=== PATIENT | female | born 1950 | race Caucasian/White ===

== ENCOUNTER 2017-01-13 09:12 | Emergency (ER) | payer OTHER ==
[2017-01-13 09:30] VITALS: BP 127/67
[2017-01-13] MEDS ORDERED: Ibuprofen TAB* 600 MG PO ONE (09:37)
--- NOTE | 2017-01-13 10:02 | RAD ---
HISTORY: Pain of, throbbing pain and swelling COMPARISONS: None VIEWS: 4, Frontal, lateral, and oblique views of the left hand FINDINGS: BONE DENSITY: There is diffuse osteopenia. BONES: There is no displaced fracture. There is remote posttraumatic deformity of the third distal phalanx JOINTS: There is advanced osteoarthritis of the first CMC joint . There is no appreciable erosion or periosteal reaction ALIGNMENT: There is no dislocation. SOFT TISSUES: Unremarkable. OTHER FINDINGS: None. IMPRESSION: 1. OSTEOPENIA. 2. ADVANCED OSTEOARTHRITIS OF THE FIRST CMC JOINT. 3. NO APPRECIABLE EROSION OR PERIOSTEAL REACTION. PLAIN FILM FINDINGS OF OSTEOMYELITIS ARE RELATIVELY LATE FINDINGS. IF THERE IS PERSISTENT CLINICAL CONCERN FOR OSTEOMYELITIS, RECOMMEND CORRELATION WITH FOLLOWUP IMAGING, THREE-PHASE BONE SCANNING, WHITE BLOOD CELL SCAN, AND/OR MRI OF THE AFFECTED REGION.
--- NOTE | 2017-01-13 10:52 | UC ---
Deandra De Los Santos Auryana, scribed for Dewayne Page MD on 01/13/17 at 0941 . Hand/Wrist HPI - HPI Summary HPI Summary: IN ROOM NOTE: 66 year old female presents with left thumb pain starting 2 weeks age worse since 3 days ago- at its worst today. She characterizes the pain as throbbing - 10/10 and now has erythema and edema. Movement aggravates the pain. She is left hand dominant. Patient denies any other complaints. She reports that she attempted to remove part of her nail to help improve pain- no relief. Dr. Raman is her PCP. PMHx is significant for hypothyroidism with thyroidectomy. FHx is significant for heart disease, HLD, and cancer. SHx is not significant for tobacco use - former smoker. NOTE: Vital signs stable. History of hypothyroidism. Visit history non-contributory to present complaint. NURSE NOTE: had a sore thumb for a couple of weeks. states she originally thought she just bumped it but it didn't stop,. she started using a fungicide because the nail was discolored but it is still hurting - History Of Current Complaint Chief Complaint: UCUpperExtremity Stated Complaint: THUMB COMPLAINT Time Seen by Provider: 01/13/17 09:33 Hx Obtained From: Patient Hx Last Menstrual Period: post menopausal ?: No Onset/Duration: Gradual Onset, Lasting Weeks, Still Present, Worse Since - 3 days ago Severity Initially: Moderate Severity Currently: Severe Pain Intensity: 10 Pain Scale Used: 0-10 Numeric Character Of Pain: Throbbing Aggravating Factor(s): Movement Associated Signs And Symptoms: Positive: Swelling, Redness Related History: Dominant Hand Left - Allergies/Home Medications Allergies/Adverse Reactions: Allergies Allergy/AdvReac Type Severity Reaction Status Date / Time Penicillins Allergy Hives Verified 05/25/16 15:32 PMH/Surg Hx/FS Hx/Imm Hx - Additional Past Medical History Additional PMH: Sciatica Graves Disease Endocrine History Of: Reports: Thyroid Disease - thyroidectomy, Hypothyroidism Denies: Diabetes, Hyperthyroidism, Dyslipidemia Cardiovascular History Of: Denies: Cardiac Disorders, Hypertension, Pacemaker/ICD, Myocardial Infarction , Congestive Heart Failure, Atrial Fibrillation, Deep Vein Thrombosis, Bleeding Disorders Respiratory History Of: Reports: COPD Denies: Asthma, Bronchitis, Pneumonia, Pulmonary Embolism GI/ History Of: Denies: Gastroesophageal Reflux, Ulcer, Gastrointestinal Bleed, Gall Bladder Disease, Kidney Stones, Diverticulitis, Renal Disease, Urosepsis Neurological History Of: Denies: TIA, CVA, Dementia, Seizures, Migraine Psychological History Of: Reports: Anxiety, Depression Denies: Bipolar Disorder, Schizophrenia, Post Traumatic Stress Disorder Cancer History Of: Denies: Lung Cancer, Colorectal Cancer, Breast Cancer, Prostate Cancer, Cervical Cancer Other History Of: Negative For: HIV, Hepatitis B - Surgical History Surgical History: Yes Surgery Procedure, Year, and Place: radiated thyroid - Family History Known Family History: Positive: Cardiac Disease - half sister, Other - [place] Negative: Hypertension, Diabetes - Social History Occupation: Retired - reports house work occasionally Lives: Alone Alcohol Use: Occasionally Substance Use Type: None Smoking Status (MU): Former Smoker - Immunization History Most Recent Tetanus Shot: unsure Review of Systems Constitutional: Negative Skin: Negative Eyes: Negative ENT: Negative Respiratory: Negative Cardiovascular: Negative Gastrointestinal: Negative Genitourinary: Negative Motor: Negative Neurovascular: Negative Musculoskeletal: Other: - left thumb pain, swelling and erythema Neurological: Negative Psychological: Negative All Other Systems Reviewed And Are Negative: Yes Physical Exam Triage Information Reviewed: Yes Appearance: Well-Appearing, No Pain Distress, Well-Nourished Vital Signs: Initial Vital Signs Temp 96.2 F 01/13/17 09:20 Pulse 71 01/13/17 09:20 Resp 18 01/13/17 09:20 BP 127/67 01/13/17 09:20 Pulse Ox 97 01/13/17 09:20 Vital Signs Reviewed: Yes Eyes: Positive: Conjunctiva Clear ENT: Positive: Hearing grossly normal, Pharynx normal, TMs normal Neck: Positive: Supple, Nontender, No Lymphadenopathy Respiratory: Positive: Chest non-tender, Lungs clear, Normal breath sounds, No respiratory distress Cardiovascular: Positive: RRR, No Murmur Abdomen Description: Positive: Nontender, No Organomegaly, Soft Bowel Sounds: Positive: Present Musculoskeletal: Positive: Strength Intact, Other: - PRUITT; EXAMINATION OF THE LEFT THUMB SHOWS PARTIAL REMOVAL OF THE UPPER NAIL (PATIENT REPORTS DONE LAST NIGHT) WELL MILD SWELLING AND ERYTHEMA ON THE VOLAR ASPECT. NO ASCENDING LYMPHANGITIS. NO EVIDENCE OF PARONYCHIA. MODERATE TENDERNESS OF THUMB ON DIRECT PALPATION OF THE VOLAR ASPECT. Neurological: Positive: Alert Psychological: Positive: Age Appropriate Behavior Skin: Negative: rashes Diagnostics - Radiology LEFT HAND XR Xray Interpretation: Positive (See Comments) - IMPRESSION: 1. OSTEOPENIA. 2. ADVANCED OSTEOARTHRITIS OF THE FIRST CMC JOINT. 3. NO APPRECIABLE EROSION OR PERIOSTEAL REACTION. PLAIN FILM FINDINGS OF OSTEOMYELITIS ARE RELATIVELY LATE FINDINGS. IF THERE IS PERSISTENT CLINICAL CONCERN FOR OSTEOMYELITIS, RECOMMEND CORRELATION WITH FOLLOWUP IMAGING, THREE-PHASE BONE SCANNING, WHITE BLOOD CELL SCAN, AND/OR MRI OF THE AFFECTED REGION. Radiology Interpretation Completed By: Radiologist Hand/Wrist Course/Dx - Course Course Of Treatment: Discussed with patient diagnosis of cellulitis of left thumb and possibility of a tiny splinter left underneath the nail- advised not to attempt to remove splinter and that it will find its way out. Physical exam shows cellulitis of the volar aspect of the distal phalanx of the left thumb. Patient is Urgent/Emergent. BP elevated due to current condition w/o HTN in PMH. Medications have been included in the original chart and reviewed. - Differential Dx/Diagnosis Differential Diagnosis/HQI/PQRI: Cellulitis, Contusion Provider Diagnoses: Cellulitis of the volar aspect of the distal phalanx of the left thumb. Discharge - Discharge Plan Condition: Stable Disposition: HOME Prescriptions: DOXYcycline CAP(*) [DOXYcycline 100MG CAP(*)] 100 mg PO BID #20 cap MDD 2 Patient Education Materials: Cellulitis (ED) Referrals: Jacinda Raman MD [Primary Care Provider] - Additional Instructions: Take a combination of 1000 mg acetaminophen and 400 mg of ibuprofen up to every 8 hours. Elevate and soak hot salt water for 10 Minutes 8x a day. Thank you for helping us improve patient care by filling out the [employer] Survey. WE DISCUSSED: YOU HAVE A SKIN INFECTION OF THE END OF YOUR LEFT THUMB. DOXYCYCLINE, ONE PILL TWICE A DAY FOR 10 DAYS. Re check in 2 days with your doctor if you are not improving. GO TO ED FOR INCREASED PAIN, TEMPERATURE, SWELLING. The documentation as recorded by the Deandra arceo Auryana accurately reflects the service I personally performed and the decisions made by me, Dewayne Page MD.
== END 2017-01-13 10:48 | disposition home or self-care (01) ==
LOC: UCEAST 09:12
DX: L03.012 Cellulitis of left finger (principal); E03.9 Hypothyroidism, unspecified; N95.9 Unspecified menopausal and perimenopausal disorder; J44.9 Chronic obstructive pulmonary disease, unspecified; F41.9 Anxiety disorder, unspecified; F32.9 Major depressive disorder, single episode, unspecified; Z87.891 Personal history of nicotine dependence
CPT/HCPCS: 99212; A9270-GY; G0463

== ENCOUNTER 2017-06-20 10:20 | Emergency (ER) | payer BC, OTHER ==
[2017-06-20 11:47] VITALS: BP 130/75
[2017-06-20] MEDS ORDERED: Albuterol/Ipratropium NEB.SOL* Albuterol 2.5 MG/Ipratropium 0.5 MG 3 ML INH ONE (11:49)
--- NOTE | 2017-06-20 11:59 | UC ---
Respiratory Complaint HPI - HPI Summary HPI Summary: 67 year old female with COPD presents with complains of cough and wheezing. - History of Current Complaint Chief Complaint: UCRespiratory Stated Complaint: COUGH WHEEZING ASTHMA COPD Time Seen by Provider: 06/20/17 11:56 Hx Obtained From: Patient Hx Last Menstrual Period: post menopausal Onset/Duration: Sudden Onset Severity Initially: Moderate Severity Currently: Moderate - Allergies/Home Medications Allergies/Adverse Reactions: Allergies Allergy/AdvReac Type Severity Reaction Status Date / Time Penicillins Allergy Hives Verified 05/25/16 15:32 Home Medications: Home Medications Omeprazole CAP* [Prilosec CAP* 20 MG] 20 mg PO DAILY 06/20/17 [History Confirmed 06/20/17] PMH/Surg Hx/FS Hx/Imm Hx Previously Healthy: Yes Other History Of: Negative For: HIV, Hepatitis B - Surgical History Surgical History: Yes Surgery Procedure, Year, and Place: radiated thyroid - Family History Known Family History: Positive: Cardiac Disease - half sister, Other - [place] Negative: Hypertension, Diabetes - Social History Alcohol Use: Occasionally Substance Use Type: None Smoking Status (MU): Former Smoker - Immunization History Most Recent Influenza Vaccination: utd Most Recent Tetanus Shot: unsure Review of Systems Constitutional: Negative Skin: Negative Eyes: Negative ENT: Ear Ache, Nasal Discharge, Sinus Congestion, Sinus Pain/Tenderness Respiratory: Cough Cardiovascular: Negative Gastrointestinal: Negative Genitourinary: Negative Motor: Negative Neurovascular: Negative Musculoskeletal: Negative Neurological: Negative Psychological: Negative All Other Systems Reviewed And Are Negative: Yes Physical Exam Triage Information Reviewed: Yes Vital Signs: Initial Vital Signs Temp 36.8 C 06/20/17 11:41 Pulse 75 06/20/17 11:41 Resp 20 06/20/17 11:41 BP 130/75 06/20/17 11:41 Pulse Ox 97 06/20/17 11:41 Eye Exam: Normal ENT Exam: Normal Dental Exam: Normal Neck exam: Normal Neck: Positive: 1 Respiratory: Positive: Wheezing Cardiovascular Exam: Normal Abdominal Exam: Normal Musculoskeletal Exam: Normal Neurological Exam: Normal Psychological Exam: Normal Skin Exam: Normal UC Diagnostic Evaluation - Laboratory O2 Sat by Pulse Oximetry: 97 Respiratory Course/Dx - Differential Dx/Diagnosis Provider Diagnoses: COPD EXACERBATION Discharge - Discharge Plan Condition: Stable Disposition: HOME Prescriptions: Albuterol HFA INHALER* [Ventolin HFA Inhaler*] 1 puff INH Q6H PRN #1 mdi PRN Reason: Wheezing Azithromyxin ANAIS (NF) [Z-Anais (Zithromax) 250 mg tabs #6] 2 tab PO .TODAY, THEN 1 DAILY #6 tab predniSONE TAB* [Deltasone TAB*] 40 mg PO DAILY #10 tab Patient Education Materials: COPD (Chronic Obstructive Pulmonary Disease) (ED) Referrals: Jacinda Raman MD [Primary Care Provider] -
== END 2017-06-20 12:02 | disposition home or self-care (01) ==
LOC: UCEAST 10:20
DX: J44.1 Chronic obstructive pulmonary disease with (acute) exacerbation (principal); Z88.0 Allergy status to penicillin; Z87.891 Personal history of nicotine dependence
CPT/HCPCS: 99211; A9270-GY; G0463

== ENCOUNTER 2018-06-07 07:06 | Emergency (ER) | payer BC, OTHER ==
[2018-06-07 07:18] VITALS: BP 133/69
--- NOTE | 2018-06-07 07:36 | UC ---
Neck Pain HPI - HPI Summary HPI Summary: 4 DAYS OF RIGHT SIDED NECK PAIN. NO INJURY BUT HAS BEEN HELPING HER NEIGHBOUR WITH CHORES AND DAILY ACTIVITIES RECENTLY. PAIN RADIATES DOWN RIGHT ARM AND SHE HAS OCCASIONAL TINGLING IN HER FINGERS. NO CP, SOB, N/V. HAD SIMILAR SX SOME YEARS AGO AND WAS TX SUCCESSFULLY WITH HYDROCODONE AND MUSCLE RELAXER. IS TAKING A ROAD TRIP TO [place] IN 2 DAYS AND IS CONCERNED ABOUT THE DISCOMFORT DURING THE TRAVEL. - History of Current Complaint Chief Complaint: UCBackPain Stated Complaint: NECK PAIN Time Seen by Provider: 06/07/18 07:24 Hx Obtained From: Patient Hx Last Menstrual Period: post menopausal Onset/Duration Of Injury/Symptoms: Days Mechanism Of Injury: No Known Trauma Timing: Constant Onset/Duration: Gradual Onset, Lasting Days, Still Present Severity: Moderate Pain Intensity: 10 - IN NO ACUTE DISTRESS Pain Scale Used: 0-10 Numeric Location: Discrete At: - RIGHT NECK Character: Sharp, Aching Aggravating Factors: Movement Alleviating Factors: Position Associated Signs & Symptoms: Positive: Paresthesia - Allergies/Home Medications Allergies/Adverse Reactions: Allergies Allergy/AdvReac Type Severity Reaction Status Date / Time Penicillins Allergy Hives Verified 06/07/18 07:18 Home Medications: Home Medications Aspirin TAB* [Aspirin 325 MG TAB*] 1 tab PO ONCE PRN 06/07/18 [History Confirmed 06/07/18] Ibuprofen 800 mg PO ONCE PRN 06/07/18 [History Confirmed 06/07/18] PMH/Surg Hx/FS Hx/Imm Hx Endocrine History: Hypothyroidism Respiratory History: COPD Other History Of: Negative For: HIV, Hepatitis B - Surgical History Surgical History: Yes Surgery Procedure, Year, and Place: radiated thyroid - Family History Known Family History: Positive: Cardiac Disease - half sister, Other - [place] Negative: Hypertension, Diabetes - Social History Alcohol Use: Occasionally Substance Use Type: None Smoking Status (MU): Heavy Every Day Tobacco Smoker Type: Cigarettes Amount Used/How Often: 10 cig/day Household Exposure Type: Cigarettes - Immunization History Most Recent Influenza Vaccination: utd Most Recent Tetanus Shot: unsure Review Of Systems Constitutional: Positive: Negative Skin: Positive: Negative Respiratory: Positive: Negative Cardiovascular: Positive: Negative Gastrointestinal: Positive: Negative Musculoskeletal: Positive: Arthralgia, Myalgia Neurological: Positive: Paresthesia. Negative: Headache All Other Systems Reviewed And Are Negative: Yes Physical Exam Triage Information Reviewed: Yes Appearance: Well-Appearing, No Pain Distress, Well-Nourished Vital Signs: Initial Vital Signs Temp 97.7 F 06/07/18 07:13 Pulse 89 06/07/18 07:13 Resp 18 06/07/18 07:13 BP 133/69 06/07/18 07:13 Pulse Ox 97 06/07/18 07:13 Vital Signs Reviewed: Yes Eyes: Positive: Conjunctiva Clear ENT: Positive: Hearing grossly normal Neck: Positive: Supple, No Lymphadenopathy, Other: - MILD TENDERNESS BASE OF NECK RIGHT SIDE. Negative: Nuchal Rigidity Respiratory: Positive: No respiratory distress, No accessory muscle use Cardiovascular: Positive: Pulses Normal Abdomen Description: Positive: Soft Musculoskeletal: Positive: ROM Intact, No Edema Neurological: Positive: Alert, Muscle Tone Normal, Other: - POS SPURLINGS RIGHT SIDE Psychological: Positive: Age Appropriate Behavior Skin: Negative: rashes Neck Pain Course/Dx - Differential Dx/Diagnosis Provider Diagnoses: CERVICAL RADICULOPATHY Discharge - Sign-Out/Discharge Documenting (check all that apply): Patient Departure All imaging exams completed and their final reports reviewed: No Studies - Discharge Plan Condition: Stable Disposition: HOME Prescriptions: Cyclobenzaprine TAB* [Flexeril TAB*] 10 mg PO BID PRN #30 tab PRN Reason: Pain HYDROcodone/ACETAMIN 5-325 MG* [[place]et 5-325 TAB*] 1 tab PO Q6H PRN #12 tab MDD 4 PRN Reason: Pain predniSONE TAB* [Deltasone TAB*] 50 mg PO DAILY #5 tab Patient Education Materials: Cervical Radiculopathy (ED) Referrals: Jacinda Raman MD [Primary Care Provider] - 2 Weeks Additional Instructions: TAKE THE PREDNISONE TO HELP WITH INFLAMMATION. IBUPROFEN OR ALEVE FOR DISCOMFORT. HYDROCODONE FOR BREAKTHROUGH PAIN. MUSCLE RELAXER BEFORE BED. IF YOU DO NOT IMPROVE EXPECTED FOLLOW-UP WITH YOUR PCP. YOU MAY BENEFIT FROM IMAGING AT THAT TIME. ALSO CONSIDER PHYSICAL THERAPY REFERRAL IF YOUR SYMPTOMS ARE PERSISTENT. BE SURE TO GO THROUGH SLOW RANGE OF MOTION AND STRETCHING EXERCISES DAILY YOU ARE ABLE TO PREVENT STIFFENING UP AND MAKING THE DISCOMFORT WORSE. [facility] [address] [place], [place] [id number] - Billing Disposition and Condition Condition: STABLE Disposition: Home
== END 2018-06-07 07:44 | disposition home or self-care (01) ==
LOC: UCEAST 07:06
DX: M54.12 Radiculopathy, cervical region (principal); Z88.0 Allergy status to penicillin; F17.210 Nicotine dependence, cigarettes, uncomplicated
CPT/HCPCS: 99212; G0463

== ENCOUNTER 2018-09-07 12:49 | Emergency (ER) | payer BC ==
[2018-09-07 13:14] VITALS: BP 145/75
--- NOTE | 2018-09-07 13:34 | UC ---
Complaint Female HPI - HPI Summary HPI Summary: Has been feeling urinary urgency since yesterday. Denies pain or blood; had a uti decades ago but is not prone to them. Drinking plenty of fluids. Has the sensation that something "isn't right" about how she feels, no fever or vomiting. - History Of Current Complaint Chief Complaint: UCGU Stated Complaint: UTI Time Seen by Provider: 09/07/18 13:19 Hx Obtained From: Patient Hx Last Menstrual Period: post menopause ?: No Onset/Duration: Gradual Onset Timing: Constant Severity Initially: Mild Severity Currently: Mild Pain Intensity: 4 Character: Cramping Aggravating Factor(s): Urination Alleviating Factor(s): Nothing Associated Signs And Symptoms: Negative: Back Pain, Vaginal Bleeding/Discharge, Vaginal Discharge, Vomiting(# Of Episodes =) - Allergies/Home Medications Allergies/Adverse Reactions: Allergies Allergy/AdvReac Type Severity Reaction Status Date / Time Penicillins Allergy Hives Verified 06/07/18 07:18 PMH/Surg Hx/FS Hx/Imm Hx Endocrine History: Thyroid Disease Respiratory History: COPD Other History Of: Negative For: HIV, Hepatitis B - Surgical History Surgical History: Yes Surgery Procedure, Year, and Place: radiated thyroid - Family History Known Family History: Positive: Cardiac Disease - half sister, Other - [place] Negative: Hypertension, Diabetes - Social History Occupation: Employed Full-time Alcohol Use: Occasionally Substance Use Type: None Smoking Status (MU): Heavy Every Day Tobacco Smoker Type: Cigarettes Amount Used/How Often: 10 cig/day Household Exposure Type: Cigarettes - Immunization History Most Recent Influenza Vaccination: utd Most Recent Tetanus Shot: unsure Review of Systems All Other Systems Reviewed And Are Negative: Yes Constitutional: Positive: Negative Skin: Positive: Negative Eyes: Positive: Negative ENT: Positive: Negative Respiratory: Positive: Negative Cardiovascular: Positive: Negative Gastrointestinal: Positive: Negative Genitourinary: Positive: Frequency, Urgency Motor: Positive: Negative Neurovascular: Positive: Negative Musculoskeletal: Positive: Negative Neurological: Positive: Negative Psychological: Positive: Negative Is Patient Immunocompromised?: No Physical Exam Triage Information Reviewed: Yes Appearance: Well-Appearing, No Pain Distress, Well-Nourished Vital Signs: Initial Vital Signs Temp 98.4 F 09/07/18 13:10 Pulse 70 09/07/18 13:10 Resp 16 01/12/19 13:10 BP 145/75 09/07/18 13:10 Pulse Ox 100 09/07/18 13:10 Vital Signs Reviewed: Yes Eye Exam: Normal Eyes: Positive: Conjunctiva Clear ENT Exam: Normal ENT: Positive: Normal ENT inspection, Hearing grossly normal, Pharynx normal, TMs normal Neck exam: Normal Neck: Positive: Supple, Nontender, No Lymphadenopathy Respiratory Exam: Normal Respiratory: Positive: Chest non-tender, Lungs clear, Normal breath sounds, No respiratory distress, No accessory muscle use Cardiovascular Exam: Normal Cardiovascular: Positive: RRR, No Murmur Abdomen Description: Negative: CVA Tenderness (R), CVA Tenderness (L) Musculoskeletal Exam: Normal Neurological Exam: Normal Neurological: Positive: Alert Psychological Exam: Normal Skin Exam: Normal Complaint Female Dx - Differential Dx/Diagnosis Provider Diagnosis: Urinary urgency, Elevated blood pressure reading in office without diagnosis of hypertension Discharge - Sign-Out/Discharge Documenting (check all that apply): Patient Departure All imaging exams completed and their final reports reviewed: No Studies - Discharge Plan Condition: Stable Disposition: HOME Prescriptions: Nitrofurantoin Monohyd/M-Cryst [Macrobid 100 mg Capsule] 100 mg PO BID #10 cap Patient Education Materials: Hematuria (ED), Urinary Urgency and Frequency (DC) Referrals: Jacinda Raman MD [Primary Care Provider] - 2 Weeks Additional Instructions: While you do not appear to have a full-fledged UTI today, I have prescribed an antibiotic that you can start at any point if you suddenly develop pain or worsening symptoms. Call if you start the antibiotic and are not improving within [address] Raman's office for a recheck in 2-4 weeks to make sure the blood in your urine goes away entirely. - Billing Disposition and Condition Condition: STABLE Disposition: Home - Attestation Statements Provider Attestation: I was available for consult. This patient was seen by the [facility]. The patient was not presented to, seen by, or examined by me. -Trent
== END 2018-09-07 13:40 | disposition home or self-care (01) ==
LOC: UCEAST 12:49
DX: R39.15 Urgency of urination (principal); R03.0 Elevated blood-pressure reading, without diagnosis of hypertension; Z88.0 Allergy status to penicillin; F17.210 Nicotine dependence, cigarettes, uncomplicated
CPT/HCPCS: 81003; 87086; 99212; G0463

== ENCOUNTER 2019-01-04 09:13 | Emergency (ER) | payer BC ==
[2019-01-04 09:33] VITALS: BP 120/68
--- NOTE | 2019-01-04 10:10 | UC ---
Respiratory Complaint HPI - HPI Summary HPI Summary: CHIEF COMPLAINT and HPI: This is a 68-year-old white female with a long history of smoking and COPD who also has a history of hypothyroidism, bronchospasm, treated with albuterol and a spacer, depression, and is allergic to penicillin, who reports to the urgent care center with 2 day history of bothersome cough, upper chest discomfort, and elevated temperature. Discomfort is over the area of the upper xiphoid. It is nonradiating. It is worse with coughing. Cough is nonproductive. Pulse ox is 99. VITAL SIGNS & SaO2 REVIEWED. Within normal limits unless noted here. NURSES NOTE REVIEWED. "two days ago pt developed cough and chest congestion - she feels like the mucous is stuck in her chest and not coming up, and it is very painful to cough" - History of Current Complaint Chief Complaint: UCGeneralIllness Stated Complaint: CONGESTION Time Seen by Provider: 01/04/19 10:08 Hx Last Menstrual Period: post menopause Pain Intensity: 10 - Allergies/Home Medications Allergies/Adverse Reactions: Allergies Allergy/AdvReac Type Severity Reaction Status Date / Time Penicillins Allergy Hives Verified 01/04/19 09:27 Home Medications: Home Medications Ibuprofen TAB* [Advil TAB*] 5 tab PO ONCE PRN 01/04/19 [History Confirmed ] PMH/Surg Hx/FS Hx/Imm Hx - Additional Past Medical History Additional PMH: PAST MEDICAL HISTORY- hypothyroidism, depression, COPD. CHRONIC and RECURRENT HEALTH PROBLEM LIST REVIEWED. Information relevant to present complaint: VISIT HISTORY REVIEWED. MEDICATIONS & ALLERGIES REVIEWED. Allergic to penicillin. FAMILY HISTORY: Positive for: cardiovascular disease. SOCIAL HISTORY: smoker, lives by herself, and is retired. Other History Of: Negative For: HIV, Hepatitis B - Surgical History Surgical History: Yes Surgery Procedure, Year, and Place: radiated thyroid - Family History Known Family History: Positive: Cardiac Disease - half sister, Other - [place] Negative: Hypertension, Diabetes - Social History Alcohol Use: Rare Substance Use Type: None Smoking Status (MU): Heavy Every Day Tobacco Smoker Type: Cigarettes Amount Used/How Often: 10 cig/day Household Exposure Type: Cigarettes - Immunization History Most Recent Influenza Vaccination: utd Most Recent Tetanus Shot: unsure Review of Systems All Other Systems Reviewed And Are Negative: Yes Constitutional: Positive: Fever Respiratory: Positive: Cough, Other - upper chest discomfort with coughing. Negative: Shortness Of Breath Cardiovascular: Positive: Negative. Negative: Palpitations Gastrointestinal: Positive: Negative. Negative: Abdominal Pain Is Patient Immunocompromised?: No Physical Exam - Summary Physical Exam Summary: Appearance: The patient is well-appearing, is in no pain or distress, and is well-nourished. Eyes: Conjunctiva are clear. Pupils are equal and reactive to light and accommodation. Extra ocular muscle movement is intact. ENT: The hearing is grossly normal, the pharynx is normal, and the TMs are normal. There is no muffled or hoarse voice. No stridor. Neck: The neck is supple and there is no lymphadenopathy. Respiratory: The chest is non-tender to palpation and without crepitus. and there is no respiratory distress. No wheezes, rales or rhonchi. There is an extended expiratory phase on exhalation. Cardiovascular: Heart sounds reveal a regular rate and rhythm. There are no clicks, rubs or murmurs. There are no carotid bruits or thrills. Circulation is grossly intact. Abdomen: The abdomen is soft and nontender. There is no organomegaly. Bowel sounds are present and within normal limits. No point tenderness at McBurneys point. No CVA tenderness. Musculoskeletal: Strength is intact. The patient moves all extremities. Neurological: The patient is alert. Motor and sensory are examination grossly intact. Speech is normal. Psychological: The patient displays age appropriate behavior, and is conversant. GCS=15. Skin: Negative for rashes. Triage Information Reviewed: Yes Vital Signs: Initial Vital Signs Temp 101 F 01/04/19 09:24 Pulse 87 01/04/19 09:24 Resp 18 01/04/19 09:24 BP 120/68 01/04/19 09:24 Pulse Ox 99 01/04/19 09:24 Vital Signs Reviewed: Yes Respiratory Course/Dx - Course Course Of Treatment: MEDICAL DECISION MAKING and PLAN: This is a 68-year-old white female with a long history of smoking and COPD who also has a history of hypothyroidism, bronchospasm, treated with albuterol and a spacer, depression, and is allergic to penicillin, who reports to the urgent care center with 2 day history of bothersome cough, upper chest discomfort, and elevated temperature. Discomfort is over the area of the upper xiphoid. It is nonradiating. It is worse with coughing. Cough is nonproductive. Pulse ox is 99. Review of systems is consistent with the patient's upper respiratory complaints. She has a consistent, intermittent cough with discomfort over the upper xiphoid with this cough. She also has a temperature. She has no point tenderness anywhere in the chest. Physical exam shows an extended expiratory phase. Note is made of her elevated temperature. My diagnosis is bronchitis with bronchospasm and exacerbation of COPD. I will treat her with doxycycline twice a day for 7 days and dexamethasone, 8 mg a day for 2 days. - Differential Dx/Diagnosis Differential Diagnosis/HQI/PQRI: Asthma, Bronchitis, Influenza, Lower Resp Infection, Sinusitis Provider Diagnosis: COPD (chronic obstructive pulmonary disease) with acute bronchitis Discharge - Sign-Out/Discharge Documenting (check all that apply): Patient Departure All imaging exams completed and their final reports reviewed: No Studies - Discharge Plan Condition: Stable Disposition: HOME Prescriptions: Dexamethasone TAB* [Decadron TAB*] 4 mg PO DAILY #4 tab MDD 2 DOXYcycline CAP(*) [DOXYcycline 100MG CAP(*)] 100 mg PO BID #14 cap MDD 2 Patient Education Materials: COPD (Chronic Obstructive Pulmonary Disease) (DC) , Bronchospasm (ED) Referrals: Jacinda Raman MD [Primary Care Provider] - Additional Instructions: WE DISCUSSED: PLEASE SEEK CARE AT THE EMERGENCY DEPARTMENT IF SYMPTOMS WORSEN OR IF NEW SYMPTOMS DEVELOP. FOLLOW UP WITH YOUR PRIMARY CARE PHYSICIAN IF CONDITION CONTINUES BEYOND 3 DAYS WITHOUT IMPROVEMENT. YOUR DIAGNOSIS IS: BRONCHITIS WITH BRONCHOSPASM YOUR PRESCRIPTION RECOMMENDATION IS: DOXYCYCLINE, TWICE A DAY FOR SEVEN DAYS. DEXAMETHASONE FOR 2 DAYS. OTHER INSTRUCTIONS: SEE BELOW USE YOUR ALBUTEROL AND SPACER, 2 PUFFS 4 TIMES A DAY. I'VE ALSO GIVEN YOU BESIDES THE DOXYCYCLINE 2 DAYS OF DEXAMETHASONE, A STEROID. TRY TO CUT DOWN ON HER SMOKING. DRINK LOTS OF WARM FLUIDS. COUGH, CONGESTION of CHEST, SINUSES OR EARS or SORE THROAT: USEFUL WAYS TO FEEL BETTER WITHOUT MEDICATIONS The most important goal is to liquefy all the phlegm and get it out of your head and chest. For sore throat, it is important to keep throat moist and protected. Any illness causing cough, congestion, sore throat or sinus discomfort can be helped by doing the following: FOR HEAD, SINUSES and CHEST: STAND UNDER SHOWER STREAM TO LOOSEN SECRETIONS. USE A VAPORIZOR. STAY AWAY FROM ANY SMOKE OR IRRITANTS. USE SALINE NASAL SPRAY TO KEEP FLOW OF MUCOUS FROM NOSTRILS AND SINUSES. CONSIDER USING NETI POT TO HELP WITH ALLERGIES AND CONGESTION IN THE NOSE. USE THIS THREE TIMES A WEEK. YOU CAN GET THIS AT [employer] IN [place] OR VARIOUS [facility]. FOR SORE THROAT: DRINK LOTS OF WARM FLUIDS WARM WATER GARGLES, WITH TSP OF SALT PER 8 OUNCES OF WATER, GARGLE FOR A FEW SECONDS AND SPIT OUT; GARGLE AND SPIT OUT, EVERY THREE HOURS. AND/OR: WARM WATER OR TEA, HONEY AND LEMON; 2-3 CUPS A DAY. KEEP THROAT MOIST and PROTECTED WITH LOZENGES. USE VAPORIZOR. DONT LET THROAT DRY OUT. GENERAL TYPES OF OVER THE COUNTER MEDICINE THAT MAY HELP WITH COUGH, SINUS CONGESTION OR SORE THROAT: Make sure to check with your pharmacist if you are taking other prescription medication prior to taking any of the medications listed here. DECONGESTANTS: helps relieve stuffiness and clears sinuses. Pseudoephedrine ( Sudafed or generic) is effective but you need to ask the pharmacist for it because it may be kept behind the counter. ANTIHISTAMINES: are NOT helpful in many colds and flus because they can worsen sore throat, dry eyes and mouth and cause drowsiness. Examples are diphenhydramine, doxylamine and chlorpheniramine. They can help dry you out if you are having profuse, clear drainage from the nose. EXPECTORANTS: helps thin mucous in the nose and chest, making it easier to clear the fluid out. Expectorants are in most combination cough/cold remedies and should be taken with plenty of water. Guaifenesin is the most common expectorant and it comes in pill or liquid form. Mucinex is an extended release form of guaifenesin. COUGH SUPPRESANT: reduces the body's cough reflex. Dextromethorphan is in over the counter products, but sometimes narcotics such as codeine or hydrocodone are used to suppress cough. SPECIFIC MEDICATIONS: The following medicines may help: To help with cough: DEXTROMETHORPHAN (Vicks, Robitussin, Nyquil and other brands) To help break up phlegm: GUAIFENESIN (Mucinex, Robitussin, other brands) To help clear congestion in the nose and sinuses: PSEUDOEPHEDRINE (Sudafed, Dimetapp, other brands) To help clear nasal congestion: AFRIN NASAL SPRAY: 2-3 SPRAYS PER NOSTRIL, TWICE A DAY FOR TWO DAYS ONLY. FLONASE: (or other steroid nasal sprays) can help if your running nose is caused by an allergy. It can help relieve congestion. It is used once a day in each nostril. Check the dose with your pharmacist. FOLLOW UP for RESPIRATORY, SINUS OR THROAT ILLNESS: RE-CHECK IN 1O DAYS, NEEDED, IF YOU ARE NOT IMPROVING. RETURN HERE OR SEE YOUR PHYSICIAN. RE-CHECK SOONER IF INCREASED PAIN OR TEMPERATURE WITH COUGH, SINUS PAIN OR SORE THROAT. - Billing Disposition and Condition Condition: STABLE Disposition: Home
== END 2019-01-04 10:34 | disposition home or self-care (01) ==
LOC: UCEAST 09:13
DX: J44.1 Chronic obstructive pulmonary disease with (acute) exacerbation (principal); J20.9 Acute bronchitis, unspecified; J44.0 Chronic obstructive pulmonary disease with (acute) lower respiratory infection; E03.9 Hypothyroidism, unspecified; F32.9 Major depressive disorder, single episode, unspecified; Z88.0 Allergy status to penicillin; F17.210 Nicotine dependence, cigarettes, uncomplicated
CPT/HCPCS: 99212; G0463